=== PATIENT | female | born 2000 | race Caucasian/White ===

== ENCOUNTER 2020-11-11 02:43 | Emergency (ER) | payer MEDICAID ==
[~2020-11-11] VITALS: Ht 175.3 cm; Wt 81.6 kg
--- NOTE | 2020-11-11 03:05 | NUR ---
PT [facility] AND PD C/O OVERDOSING ON KLONIPINE AND ALCOHOL. PT AAOX4 BREATHING EVENLY AND UNLABORED. PT TEARFUL AND IRRITABLE. PT HAS OLD CUTS ON HER WRISTS AND THIGHS. PT CHANGED INTO GOWN AND BELONGINGS PUT INTO A LOCKER. PT ATTACHED TO MONITOR AND POX. MADE COMFORTABLE WITH BLANKET AND CALL LIGHT WITHIN REACH. WILL CONTINUE TO MONITOR.
--- NOTE | 2020-11-11 03:05 | NUR ---
Note undone in EDM - 11/11/20 at 0344 by EDWARD PT [facility] AND PD C/O OVERDOSING ON KLONIPINE AND ALCOHOL. PT AAOX4 BREATHING EVENLY AND UNLABORED. PT TEARFUL AND IRRITABLE. PT HAS CUTS ON HER WRISTS AND THIGHS. PT CHANGED INTO GOWN AND BELONGINGS PUT INTO A LOCKER. PT ATTACHED TO MONITOR AND POX. MADE COMFORTABLE WITH BLANKET AND CALL LIGHT WITHIN REACH. WILL CONTINUE TO MONITOR.
--- NOTE | 2020-11-11 03:20 | NUR ---
LAB AT BEDSIDE
--- NOTE | 2020-11-11 03:22 | NUR ---
COVID SWAB SENT TO LAB
[2020-11-11 03:27] LABS: BASOPHILS % (AUTO) 0.4 % (0.0-2.0); EOSINOPHILS % (AUTO) 3.5 % (0.0-6.0); HEMATOCRIT 38 % (33-45); HEMOGLOBIN 13.1 g/dL (11.5-14.8); LYMPHOCYTES # (AUTO) 2.7 /CMM (0.8-4.8); LYMPHOCYTES % (AUTO) 54.8 % (20.0-44.0); MEAN CORPUSCULAR HGB CONC 34 g/dl (31.0-36.0); MEAN CORPUSCULAR VOLUME 92 fL (82-100); MONOCYTES # (AUTO) 0.5 /CMM (0.1-1.30); NEUTROPHILS # (AUTO) 1.5 /CMM (1.8-8.9); NEUTROPHILS % (AUTO) 30.3 % (43.0-81.0); PLATELET COUNT (AUTO) 263 /CMM (150-450); RED BLOOD CELL COUNT(AUTO) 4.18 MIL/uL (4.0-5.2)
--- NOTE | 2020-11-11 03:31 | NUR ---
PT ATTEMPTED TO URINATE. UNABLE TO DO SO
[2020-11-11 03:42] LABS: ALANINE AMINOTRANSFERASE 53 U/L (12-78); ALBUMIN 3.6 g/dL (3.4-5.0); ALCOHOL, BLOOD 120 mg/dL (0-0); ALKALINE PHOSPHATASE 68 U/L (46-116); ASPARTATE AMINOTRANSFERASE 55 U/L (15-37); BILIRUBIN,DIRECT 0.2 mg/dL (0.0-0.2); BILIRUBIN,TOTAL 0.4 mg/dL (0.2-1.0); CALCIUM, SERUM 8.5 mg/dL (8.5-10.1); CARBON DIOXIDE 24 mmol/L (21-32); CHLORIDE 101 mmol/L (98-107); CREATININE 0.7 mg/dL (0.6-1.3); GLUCOSE 121 mg/dL (74-106); POTASSIUM 3.5 mmol/L (3.5-5.1); SODIUM SERUM 138 mmol/L (136-145); TOTAL PROTEIN, SERUM 7.6 g/dL (6.4-8.2); UREA NITROGEN, BLOOD 8 mg/dL (7-18)
[2020-11-11 03:53] LABS: ACETAMINOPHEN < 2 ug/ml (10-30)
[2020-11-11 04:27] LABS: BILIRUBIN,URINE NEGATIVE (NEGATIVE); COLOR,URINE YELLOW (YELLOW); LEUKOCYTE ESTERASE ,URINE NEGATIVE (NEGATIVE); NITRITE, URINE NEGATIVE (NEGATIVE); PROTEIN,URINE NEGATIVE (NEGATIVE); UGLUCOSE NEGATIVE (NEGATIVE); UROBILINOGEN,URINE 0.2 EU/dL (0.2)
--- NOTE | 2020-11-11 05:19 | NUR ---
CALLED [facility], [employer] FOR EVALAUTION. EN ROUTE TO HOSPITAL
--- NOTE | 2020-11-11 05:33 | NUR ---
PT RESTING WITH EYES CLOSED. EASILY AROUSABLE
--- NOTE | 2020-11-11 06:04 | NUR ---
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
--- NOTE | 2020-11-11 07:32 | NUR ---
GAVE REPORT TO BAM TOLENTINO
--- NOTE | 2020-11-11 10:00 | NUR ---
PATIENT A/OX4, BREATHING EVEN AND UNLABORED, NO DISTRESS NOTED. AMBULATORY WITH STEADY GAIT. Patient discharged to home in stable condition. Written and verbal after care instructions given. Patient verbalizes understanding of instruction.
[2020-11-11 12:50] VITALS: BP 123/56
== END 2020-11-11 12:51 | disposition home or self-care (01) ==
LOC: ER 02:43
DX: S61.512A Laceration without foreign body of left wrist, initial encounter (principal); S71.111A Laceration without foreign body, right thigh, initial encounter; X78.9XXA Intentional self-harm by unspecified sharp object, initial encounter; Y92.89 Other specified places as the place of occurrence of the external cause; Y99.8 Other external cause status; F19.10 Other psychoactive substance abuse, uncomplicated; F31.9 Bipolar disorder, unspecified; Z88.0 Allergy status to penicillin; Z20.822 Contact with and (suspected) exposure to COVID-19
CPT/HCPCS: 36415; 80048; 80076; 80299; 80307; 80320; 81003; 84703; 85025; 87426; 99283; C9803; G0480